=== PATIENT | female | born 1945 ===

== ENCOUNTER 2021-10-14 13:16 | Outpatient (CLI) | payer OTHER ==
[~2021-10-14 13:16] MED LIST: CRESTOR5 MG PO; WELLBUTRIN XL300 MG PO
== END 2021-10-14 13:17 | disposition home or self-care (01) ==
LOC: NUCLEAR 13:16
PROVIDERS: ATTEND Internal Medicine
DX: G30.0 Alzheimer's disease with early onset (principal); G31.84 Mild cognitive impairment of uncertain or unknown etiology